=== PATIENT | male | born 1965 | race Caucasian/White ===

== ENCOUNTER 2018-01-03 06:18 | Emergency (ER) | payer SELFPAY ==
[~2018-01-03] VITALS: Ht 165.1 cm; Wt 81.6 kg
[2018-01-03 06:20] VITALS: BP_SYST 145
[2018-01-03] MEDS ORDERED: NACL 0.9% 1,000 ML IV ONE (06:42)
[2018-01-03] MEDS ORDERED: MORPHINE 2 MG/ML INJ. SYRINGE IVP ONE (06:45)
[2018-01-03] MEDS ORDERED: ONDANSETRON HCL 4 MG/2 ML VIAL IVP ONE (06:45)
[2018-01-03] MEDS ORDERED: PANTOPRAZOLE SODIUM 40 MG/VIAL (PROTONIX) IVP ONE (06:45)
[2018-01-03 07:12] LABS: CREATININE 0.94 mg/dL (0.55-1.30); POTASSIUM 4.3 mmol/L (3.5-5.1)
[2018-01-03 07:18] LABS: TOTAL BILIRUBIN 0.6 mg/dL (0.0-1.0)
[2018-01-03 07:24] LABS: HEMATOCRIT 48.2 % (36-54); HEMOGLOBIN 16.5 g/dL (14.0-18.0); MEAN CORPUSCULAR HEMOGLOBIN 35 pg (27-31); MEAN CORPUSCULAR HGB CONC 34 % (32-36); MEAN CORPUSCULAR VOLUME 101 fL (79.0-98.0); PLATELET COUNT (AUTO) 143 K/uL (130-430); RED BLOOD CELL COUNT(AUTO) 4.78 MIL/uL (4.2-6.2); RED CELL DISTRIBUTION WIDTH 12.5 % (9.0-15.0)
[2018-01-03 07:26] LABS: PROTHROMBIN TIME 9.9 SECS (9.5-12.5)
[2018-01-03 07:53] LABS: ATYPICAL LYMPHOCYTES % 5 % (0-0); BAND % (MANUAL) 0 % (0-6); EOSINOPHILS % (MANUAL) 1 % (0-7); LYMPHOCYTES % (MANUAL) 30 % (20-46); MONOCYTES % (MANUAL) 21 % (0-11)
[2018-01-03 07:54] LABS: BASOPHILS % (MANUAL) 0 % (0-2)
[2018-01-03 09:06] LABS: BILIRUBIN,URINE 1+ (NEGATIVE); BLOOD, URINE NEGATIVE (NEGATIVE); CLARITY/URINE CLEAR (CLEAR); COLOR,URINE AMBER (YELLOW); GLUCOSE,URINE NEGATIVE (NEGATIVE); KETONES,URINE 2+ (NEGATIVE); LEUKOCYTE ESTERASE ,URINE NEGATIVE (NEGATIVE); NITRITE, URINE NEGATIVE (NEGATIVE); PROTEIN URINE 2+ (NEGATIVE)
[2018-01-03 09:15] LABS: BACTERIA,URINE FEW /HPF (None Seen); RBC,URINE 0-3 /HPF (0-3)
[2018-01-03 09:16] LABS: FINE GRANULAR CASTS,URINE 0-10 /LPF (None Seen); MUCUS,URINE 2+ /LPF (None Seen)
[2018-01-03] MEDS ORDERED: fentaNYL CITRATE/PF 100 MCG/2 ML AMP IVP ONE (09:30)
[2018-01-03 11:05] VITALS: BP_SYST 154
== END 2018-01-03 11:05 | disposition home or self-care (01) ==
LOC: SED 06:18
DX: R10.11 Right upper quadrant pain (principal); R07.89 Other chest pain; R74.0 Nonspecific elevation of levels of transaminase and lactic acid dehydrogenase [LDH]; F17.200 Nicotine dependence, unspecified, uncomplicated; F41.9 Anxiety disorder, unspecified; F43.10 Post-traumatic stress disorder, unspecified; Z86.19 Personal history of other infectious and parasitic diseases; Z87.19 Personal history of other diseases of the digestive system
CPT/HCPCS: 36415; 71045; 74176; 80053; 81000; 83690; 83880; 84484; 85007; 85027; 85379; 85610; 85730; 87086; 93005; 96361; 96374; 96375; 99285; C9113; J2270; J2405; J3010; J7030